=== PATIENT | male | born 1950 | race Caucasian/White ===

== ENCOUNTER 2020-11-11 11:16 | Emergency (ER) | payer BC, MEDICAID ==
[2020-11-11] MEDS ORDERED: methylPREDNISolone Sodium Succinate 125 MG/2 ML SDV IM ONE (12:05)
--- NOTE | 2020-11-11 12:13 | EDM.PDOC ---
ED HPI GENERAL MEDICAL PROBLEM - General Chief Complaint: Lower Extremity Injury/Pain Stated Complaint: [id number] SEVERE PAIN RIGHT HIP DOWN LEG Time Seen by Provider: 11/11/20 11:50 Source of Information: Reports: Patient History Limitations: Reports: No Limitations - History of Present Illness INITIAL COMMENTS - FREE TEXT/NARRATIVE: This 70 yo male patient reports to the ED due to right hip pain radiating down his right leg. The patient reports he had a fall in July and has been having increased pain since that time. The patient reports he had an MRI 3 weeks ago that demonstrated "severe nerve impingement" to the right side. The patient was started on Naproxen and Gabapentin, but has had increased symptoms. The patient went to the [facility] here in [place], but was turned away due to the patient being a [facility] patient. The patient reports he is [facility] be [facility], but [facility]. The [facility] has [facility] contact [facility] over the [facility] days, but has not had a response. Duration: Week(s):, Constant, Getting Worse Location: Reports: Lower Extremity, Right Quality: Reports: Ache, Sharp, Stabbing Severity: Severe Improves with: Reports: Other (lying a certain way in bed) Worsens with: Reports: Other (standing and sitting), Movement Context: Reports: Activity Associated Symptoms: Reports: No Other Symptoms Treatments MANAGER PORTABLE: Reports: NSAIDS, Other Medication(s) Right Hip Pain Score (Numeric/FACES): 9 - Related Data Allergies Allergy/AdvReac Type Severity Reaction Status Date / Time [id number]-[id number]-[id number] Reductase Allergy Pain Verified 11/11/20 11:32 Inhibitor Sulfa (Sulfonamide Allergy Other Verified 11/11/20 11:32 Antibiotics) Home Meds: Home Meds hydroCHLOROthiazide [Hydrochlorothiazide] 25 mg PO DAILY 11/11/20 [History] lisinopriL [Lisinopril] 10 mg PO DAILY 11/11/20 [History] metFORMIN [Glucophage] 500 mg PO BID 11/11/20 [History] Past Medical History HEENT History: Reports: Hard of Hearing Cardiovascular History: Reports: High Cholesterol, Hypertension, [place] Respiratory History: Reports: COPD Genitourinary History: Reports: None Musculoskeletal History: Reports: Arthritis Neurological History: Reports: None Psychiatric History: Reports: None Endocrine/Metabolic History: Reports: Diabetes, Type II, Obesity/BMI 30+ Hematologic History: Reports: None Immunologic History: Reports: None Oncologic (Cancer) History: Reports: Bladder, Prostate Dermatologic History: Reports: None - Infectious Disease History Infectious Disease History: Reports: Chicken Pox - Past Surgical History Male Surgical History: Reports: Prostatectomy Social & Family History - Tobacco Use Tobacco Use Status *Q: Current Every Day Tobacco User Years of Tobacco use: 60 Packs/Tins Daily: 0.5 Second Hand Smoke Exposure: No - Caffeine Use Caffeine Use: Reports: Coffee, Soda - Recreational Drug Use Recreational Drug Use: No Review of Systems - Review of Systems Review Of Systems: Comprehensive ROS is negative, except as noted in HPI. ED EXAM, GENERAL - Physical Exam Exam: See Below Exam Limited By: No Limitations General Appearance: Alert, WD/WN, Moderate Distress Eye Exam: Bilateral Eye: EOMI, Normal Inspection, PERRL Ears: Normal External Exam, Normal Canal, Hearing Grossly Normal, Normal TMs Nose: Normal Inspection, Normal Mucosa, No Blood Throat/Mouth: Normal Inspection, Normal Lips, Normal Teeth, Normal Gums, Normal Oropharynx, Normal Voice, No Airway Compromise Head: Atraumatic, Normocephalic Neck: Normal Inspection, Supple, Non-Tender, Full Range of Motion Respiratory/Chest: No Respiratory Distress, Lungs Clear, Normal Breath Sounds, No Accessory Muscle Use, Chest Non-Tender Cardiovascular: Normal Peripheral Pulses, Regular Rate, Rhythm, No Edema, No Gallop, No JVD, No Murmur, No Rub GI/Abdominal: Normal Bowel Sounds, Soft, Non-Tender, No Organomegaly, No Distention, No Abnormal Bruit, No Mass (Male) Exam: Deferred Rectal (Males) Exam: Deferred Back Exam: Normal Inspection, Full Range of Motion, NT Extremities: Leg Pain (Right hip pain radiating down his right leg) Neurological: Alert, Oriented, CN II-XII Intact, Normal Cognition, Normal Gait, Normal Reflexes, No Motor/Sensory Deficits Psychiatric: Normal Affect, Normal Mood Skin Exam: Warm, Dry, Intact, Normal Color, No Rash Lymphatic: No Adenopathy Course - Vital Signs Last Recorded V/S: Last Vital Signs Temp 97.5 F 11/11/20 11:25 Pulse 92 11/11/20 11:25 Resp 16 11/11/20 11:25 BP 142/72 H 11/11/20 11:25 Pulse Ox 100 11/11/20 11:25 - Orders/Labs/Meds Meds: Medications Discontinued Medications Generic Name Dose Route Start Last Admin Trade Name Bishop PRN Reason Stop Dose Admin Methylprednisolone Sodium Succinate 125 mg 11/11/20 12:05 Methylprednisolone Sodium Succinate 125 Mg/2 Ml Sdv IM 11/11/20 12:06 ONETIME ONE Departure - Departure Time of Disposition: 12:14 Disposition: Home, Self-Care 01 Condition: Fair Clinical Impression: Right sciatic nerve pain - Discharge Information *PRESCRIPTION DRUG MONITORING PROGRAM REVIEWED*: Not Applicable *COPY OF PRESCRIPTION DRUG MONITORING REPORT IN PATIENT RAUL: Not Applicable Instructions: Sciatica, Yalc-en-[id number] Care Plan Goals: The patient and his were advised of the examination results during the visit. The patient was given an injection of SoluMedrol (125 mg) while in the ED. The patient was discharged with a script for [place] (10) #12 to take 1 by mouth every 6 hours as needed for pain. The patient was encouraged to continue to contact his primary care facility for referral information to [facility]. If the patient has any additional symptoms or concerns, the patient should either return to the emergency department or visit his primary care facility. Sepsis Event Note (ED) - Evaluation Sepsis Screening Result: No Definite Risk - Focused Exam Vital Signs: Vital Signs Temp Pulse Resp BP Pulse Ox 11/11/20 11:25 97.5 F 92 16 142/72 H 100
== END 2020-11-11 12:23 | disposition home or self-care (01) ==
LOC: DL.ED 11:16
DX: M79.2 Neuralgia and neuritis, unspecified (principal); I10 Essential (primary) hypertension; I25.2 Old myocardial infarction; E66.9 Obesity, unspecified; Z68.33 Body mass index [BMI] 33.0-33.9, adult; Z88.2 Allergy status to sulfonamides; Z88.8 Allergy status to other drugs, medicaments and biological substances; Z72.0 Tobacco use
CPT/HCPCS: 96372; 99283; J2930